=== PATIENT | female | born 1975 | race American Indian/Alaskan Native ===

== ENCOUNTER 2021-01-31 11:00 | Outpatient (CLI) | payer MEDICAID | END 2021-01-31 11:01 | disposition home or self-care (01) | LOC: SLR 11:00 | PROVIDERS: ATTEND Surgery | DX: G47.30 Sleep apnea, unspecified (principal) | CPT/HCPCS: G0399 ==

== ENCOUNTER 2021-03-08 13:41 | Outpatient (CLI) | payer MEDICAID ==
[2021-03-08 14:49] LABS: Eosinophils # (Auto) 0.1 K/mm3 (0.0-0.4); Eosinophils % (Auto) 0.8 % (0.0-4.3); Monocytes # (Auto) 0.5 K/mm3 (0.0-0.8); Monocytes % (Auto) 6.4 % (0.0-7.3)
[2021-03-08 15:00] LABS: Hematocrit 32.5 % (30.3-42.9); Hemoglobin 10.3 gm/dl (10.1-14.3); Red Blood Count 4.47 M/mm3 (3.65-5.03)
[2021-03-08 15:01] LABS: Basophils % (Auto) 0.3 % (0.0-1.8); Lymphocytes % (Auto) 25.5 % (13.4-35.0); Mean Corpuscular HGB Conc 32 % (30-34); Mean Corpuscular Volume 73 fl (79-97); Platelet Count 230 K/mm3 (140-440); Red Cell Distribution Width 16.8 % (13.2-15.2)
[2021-03-08 15:14] LABS: % Iron Saturation 7.28 %; Alanine Aminotransferase 16 units/L (7-56); BUN/Creatinine Ratio 20; Blood Urea Nitrogen 16 mg/dL (7-17); Calcium 9.1 mg/dL (8.4-10.2); Chol/HDL Ratio 2.91 %; HDL Cholesterol 59 mg/dL (40-59); Hemolysis Index 3; Iron 26 ug/dL (37-170); LDL Cholesterol,Direct 112 mg/dL (50-130); Total Iron Binding Capacity 357 mcg/dL (250-450)
== END 2021-03-08 13:42 | disposition home or self-care (01) ==
LOC: LAB 13:41
PROVIDERS: ATTEND Surgery
DX: E11.9 Type 2 diabetes mellitus without complications (principal); E66.01 Morbid (severe) obesity due to excess calories; K30 Functional dyspepsia
CPT/HCPCS: 36415; 80053; 80061; 82306; 82607; 82728; 83036; 83550; 84443; 85025; 85730

== ENCOUNTER 2021-06-21 12:25 | Outpatient (CLI) | payer MEDICAID ==
--- NOTE | 2021-06-21 14:09 | XRay Report ---
CHEST 2 VIEWS INDICATION: GERD. COMPARISON: None FINDINGS: Support devices: None. Heart: Within normal limits. Lungs/pleura: No acute air space or interstitial disease. No pneumothorax. Additional findings: None. IMPRESSION: Normal chest x-ray. Signer Name: Alexander Cruz Jr, MD Signed: 06/21/2021 2:05 PM Workstation Name: [id number]
[2021-06-21 16:11] LABS: ABG HCO3 21.8 mmol/L (20.0-26.0); ABG PCO2 32.4 mm Hg; ABG PH 7.445 pH Units (7.350-7.450); ABG PO2 95.4 mm Hg (80.0-90.0)
[2021-06-21 16:12] LABS: ABG Base Excess -1.7 mmol/L (-2.0-3.0); ABG Methemoglobin 0.3 % (0.0-1.5); ABG Oxygen Saturation 97.5 % (95.0-99.0)
== END 2021-06-21 12:26 | disposition home or self-care (01) ==
LOC: XRAY 12:25
PROVIDERS: ATTEND Internal Medicine
DX: K21.9 Gastro-esophageal reflux disease without esophagitis (principal); J32.9 Chronic sinusitis, unspecified; J30.9 Allergic rhinitis, unspecified; Z68.42 Body mass index [BMI] 45.0-49.9, adult; Z86.2 Personal history of diseases of the blood and blood-forming organs and certain disorders involving the immune mechanism
CPT/HCPCS: 36600; 71046; 82803

== ENCOUNTER 2021-07-11 07:14 | Day surgery (SDC) | payer MEDICAID ==
[~2021-07-11 07:14] MED LIST: SODIUM CHLORIDE 0.9% 1000 ML 1,000 ML IV SCH
--- NOTE | 2021-07-11 08:29 | Anesthesia Consultation ---
Anesthesia Consult and Med Hx Date of service: 07/11/21 - Airway Anesthetic Teeth Evaluation: Good ROM Head & Neck: Adequate Mental/Hyoid Distance: Adequate Mallampati Class: Class III Intubation Access Assessment: Possibly Difficult - Pre-Operative Health Status ASA Pre-Surgery Classification: ASA3 Proposed Anesthetic Plan: MAC - Pulmonary Hx Smoking: No Hx Respiratory Symptoms: No Hx Sleep Apnea: Yes (recent dx; no CPAP yet) - Cardiovascular System Hx Hypertension: No - Central Nervous System CVA: No - Endocrine Hx Renal Disease: No Hx Liver Disease: No Hx Insulin Dependent Diabetes: No Hx Non-Insulin Dependent Diabetes: No Hx Thyroid Disease: No - Other Systems Hx Obesity: Yes (BMI 45)
--- NOTE | 2021-07-11 08:29 | Anesthesia Day of Surgery ---
Anesthesia Day of Surgery - Day of Surgery Patient Examined: Yes Patient H&P Reviewed: Yes Patient is NPO: Yes
--- NOTE | 2021-07-11 08:49 | Operative Report ---
Operative Report Operative Report: DATE: 07/11/2021 SURGERY: Upper endoscopy. SURGEON: Sherman Fox M.D. PROCEDURE: EGD with biopsy PRE OP DX: morbid obesity, GERD POST OP DX: morbid obesity, GERD TYPE OF ANESTHESIA: MAC. ESTIMATED BLOOD LOSS: None. COMPLICATIONS: None. SPECIMENS REMOVED: antral biopsy FINDINGS: 1. hiatal hernia. 2. antral gastritis INDICATIONS:INDICATION FOR PROCEDURE: Patient is a 45-year-old female with a long history of morbid obesity. She is planned to have a weight loss procedure and is here for preoperative planning EGD. PROCEDURE DETAILS: After consent was reviewed, patient was taken back to the operating room where patient was placed in the left lateral decubitus position and a bite block was placed in the mouth. After a time-out was called, MAC anesthesia was initiated. I then passed the endoscope into her oropharynx, into her esophagus, visualized the entire esophagus, which was all within normal limits. Z-line was noted to about 36 cm from incisors. I then visualized the stomach and the first portion of the duodenum and there were no abnormalities I could clearly visualize except for antral gastritis. A cold forceps biopsy of the antrum was taken and will be sent to pathology to evaluate for H.pylori. I then retroflexed the scope in the stomach and visualized the hiatus and I could see a moderate sized hiatal hernia. I then desufflated the stomach and removed the endoscope. Patient tolerated procedure well and was transferred to recovery room in good and stable condition.
[2021-07-11] MEDS ORDERED: propofoL 200 MG/20 ML VIAL IV ONE ×2 (08:55→09:04)
--- NOTE | 2021-07-11 08:57 | Discharge Summary ---
Providers - Providers Date of Admission: 07/11/2021 Date of discharge: 07/11/21 Attending physician: HONEY CASTRO MD Primary care physician: YON TAN Hospitalization Reason for admission: pre-op planning egd Condition: Good Procedures: egd with bx Hospital course: Pt presented for a pre-op EGD as part of planning for up coming bariatric surgery. Procedure was uneventful and pt recovered well and was discharged to home. Disposition: 01 HOME / SELF CARE / HOMELESS Final Discharge Diagnosis (Prints w/discharge instructions): morbid obesity, dyspepsia Core Measure Documentation - Palliative Care Palliative Care/ Comfort Measures: Not Applicable - Core Measures Any of the following diagnoses?: none Exam - Physical Exam Narrative exam: unchanged from pre-op Plan Activity: advance as tolerated Diet: low carbohydrate Follow up with: YON TAN MD [Primary Care Provider] - 7 Days
[2021-07-11 09:33] VITALS: BP 108/81
--- NOTE | 2021-07-11 09:49 | Post Anesthesia Evaluation ---
- Post Anesthesia Evaluation Patient Participated: Yes Airway Patent: Yes Stable Respiratory Function: Yes Nausea/Vomiting: No Temp > 96.8F: Yes Pain Manageable: Yes Adequeate Hydration: Yes Anesthesia Complications: No
== END 2021-07-11 10:15 | disposition home or self-care (01) ==
LOC: GIO 07:14
PROVIDERS: ATTEND Surgery
DX: E66.01 Morbid (severe) obesity due to excess calories (principal); K21.9 Gastro-esophageal reflux disease without esophagitis; K44.9 Diaphragmatic hernia without obstruction or gangrene; K29.50 Unspecified chronic gastritis without bleeding; K31.89 Other diseases of stomach and duodenum; E66.9 Obesity, unspecified; G47.30 Sleep apnea, unspecified; Z91.040 Latex allergy status; Z88.8 Allergy status to other drugs, medicaments and biological substances; Z79.899 Other long term (current) drug therapy; Z98.890 Other specified postprocedural states; Z68.42 Body mass index [BMI] 45.0-49.9, adult
CPT/HCPCS: 43239; 88305; 88342; J2704; J7030

== ENCOUNTER 2021-07-14 09:37 | Outpatient (CLI) | payer MEDICAID ==
--- NOTE | 2021-07-14 12:14 | XRay Report ---
CHEST 2 VIEWS INDICATION: E66.00. COMPARISON: 06/21/2021 FINDINGS: Support devices: None. Heart: Within normal limits. Lungs/pleura: No acute air space or interstitial disease. No pneumothorax. Additional findings: None. IMPRESSION: Normal chest x-ray. No change since 06/21/2021. Signer Name: Alexander Cruz Jr, MD Signed: 07/14/2021 12:10 PM Workstation Name: [id number]
--- NOTE | 2021-07-14 12:16 | Fluoroscopy Report ---
BARIUM SWALLOW Indication: E66.00. Evaluation for gastric bypass surgery. Technique: Single and double contrast barium technique utilized to evaluate the esophagus. FINDINGS: To begin the exam, swallowing was evaluated in the lateral position under direct fluorosco py. Swallowing was normal. No mucosal irregularity, mass, mass effect, or critical stenosis. There were no abnormal tertiary c ontractions as seen with dysmotility. One episode of gastroesophageal reflux to the mid esophagus was witnessed during this exam. No hiatal hernia is seen. IMPRESSION: No anatomical abnormality is appreciated. One episode of gastroesophageal reflux was wit nessed. Fluoroscopic time: 0.9 minutes Number of fluoroscopic images: 44 Signer Name: Alexander Cruz Jr, MD Signed: 07/14/2021 12:12 PM Workstation Name: [id number]
== END 2021-07-14 09:38 | disposition home or self-care (01) ==
LOC: FLUORO 09:37
PROVIDERS: ATTEND Surgery
DX: E66.01 Morbid (severe) obesity due to excess calories (principal)
CPT/HCPCS: 71046; 74220

== ENCOUNTER 2021-08-01 10:57 | Outpatient (CLI) | payer MEDICAID ==
[2021-08-01 11:20] LABS: Basophils % (Auto) 0.3 % (0.0-1.8); Eosinophils # (Auto) 0.1 K/mm3 (0.0-0.4); Eosinophils % (Auto) 0.9 % (0.0-4.3); Hematocrit 30.9 % (30.3-42.9); Hemoglobin 10.2 gm/dl (10.1-14.3); Lymphocytes # (Auto) 1.7 K/mm3 (1.2-5.4); Lymphocytes % (Auto) 27.7 % (13.4-35.0); Mean Corpuscular HGB Conc 33 % (30-34); Mean Corpuscular Volume 73 fl (79-97); Monocytes # (Auto) 0.4 K/mm3 (0.0-0.8); Monocytes % (Auto) 6.5 % (0.0-7.3); Platelet Count 211 K/mm3 (140-440); Red Blood Count 4.23 M/mm3 (3.65-5.03)
[2021-08-01 11:38] LABS: Alanine Aminotransferase 6 units/L (7-56); Albumin 3.9 g/dL (3.9-5); Blood Urea Nitrogen 7 mg/dL (7-17); Calcium 9.2 mg/dL (8.4-10.2); Hemolysis Index 0; Iron 25 ug/dL (37-170)
[2021-08-01 11:49] LABS: BUN/Creatinine Ratio 12
[2021-08-04 13:13] LABS: Vitamin D, 25-OH, D2 <4 ng/mL
== END 2021-08-01 10:58 | disposition home or self-care (01) ==
LOC: LAB 10:57
PROVIDERS: ATTEND Internal Medicine
DX: Z01.810 Encounter for preprocedural cardiovascular examination (principal); E55.9 Vitamin D deficiency, unspecified
CPT/HCPCS: 36415; 80053; 82306; 82728; 83540; 85025

== ENCOUNTER 2021-09-04 05:52 | Inpatient (IN) | payer MEDICAID ==
[2021-09-01 11:40] LABS: Alanine Aminotransferase 5 units/L (7-56); Blood Urea Nitrogen 11 mg/dL (7-17); Calcium 9.4 mg/dL (8.4-10.2); Hemolysis Index 2
[2021-09-01 11:41] LABS: BUN/Creatinine Ratio 16
--- NOTE | 2021-09-01 12:16 | Anesthesia Consultation ---
Anesthesia Consult and Med Hx Date of service: 09/04/21 - Airway Anesthetic Teeth Evaluation: Chipped ROM Head & Neck: Adequate Mental/Hyoid Distance: Adequate Mallampati Class: Class III Intubation Access Assessment: Possibly Difficult - Pre-Operative Health Status ASA Pre-Surgery Classification: ASA3 Proposed Anesthetic Plan: General - Pulmonary Hx Smoking: No Hx Respiratory Symptoms: No Hx Sleep Apnea: Yes - Cardiovascular System Hx Hypertension: No - Central Nervous System CVA: No Hx Psychiatric Problems: No - Gastrointestinal Hx Gastroesophageal Reflux Disease: Yes - Endocrine Hx Renal Disease: No Hx Liver Disease: No Hx Insulin Dependent Diabetes: No Hx Non-Insulin Dependent Diabetes: No Hx Thyroid Disease: No - Other Systems Hx Cancer: No Hx Obesity: Yes (BMI 45) - Additional Comments Anesthesia Medical History Comments: Chart reviewed-+Cardiac and pulmonary clearances
[2021-09-01 12:37] LABS: Hemoglobin 10.9 gm/dl (10.1-14.3); Red Blood Count 4.62 M/mm3 (3.65-5.03)
[2021-09-01 12:38] LABS: Hematocrit 34.8 % (30.3-42.9); Mean Corpuscular HGB Conc 31 % (30-34); Mean Corpuscular Volume 75 fl (79-97); Platelet Count 220 K/mm3 (140-440); Red Cell Distribution Width 16.7 % (13.2-15.2)
[2021-09-04] MEDS ORDERED: methOCARBAMOL 1,000 MG in SODIUM CHLORIDE 0.9% 250ML 250 ML IV ONE (06:00)
[2021-09-04] MEDS ORDERED: ENOXAPARIN 40 MG/0.4 ML INJ SUB-Q NR (06:00)
[2021-09-04] MEDS ORDERED: ACETAMINOPHEN IV 1,000 MG/100 ML BOTTLE IV NR (06:00)
[2021-09-04] MEDS ORDERED: metroNIDAZOLE/NS 500 MG/100 ML 500 MG/100 ML BAG IV NR (06:00)
[2021-09-04] MEDS ORDERED: MIDAZOLAM 2 MG/2 ML INJ IV NR (06:00)
[2021-09-04] MEDS ORDERED: LACTATED RINGERS 1,000 ML IV SCH ×2 (06:00→11:30)
[2021-09-04] MEDS ORDERED: GABAPENTIN 500 MG/10 ML ORAL LIQD PO NR (06:00)
[2021-09-04] MEDS ORDERED: SCOPOLAMINE TRANSDERMAL PATCH 72 HR TD NR (06:00)
[2021-09-04] MEDS ORDERED: ceFAZolin/Water 2 GM/20 ML 2 GM/20 ML SYRINGE IV NR (06:00)
[2021-09-04] MEDS ORDERED: LIDOCAINE MPF (2%) 20 MG/1 ML VIAL 5 ML ONE (07:16)
[2021-09-04] MEDS ORDERED: MIDAZOLAM 2 MG/2 ML INJ ONE (07:16)
[2021-09-04] MEDS ORDERED: ROCURONIUM 50 MG/5 ML INJ IV ONE (07:16)
[2021-09-04] MEDS ORDERED: SODIUM CHLORIDE P/F VIAL 10 ML 10 ML ONE (07:26)
--- NOTE | 2021-09-04 07:30 | Anesthesia Day of Surgery ---
Anesthesia Day of Surgery - Day of Surgery Patient Examined: Yes Patient H&P Reviewed: Yes Patient is NPO: Yes Cardiac Clearance: Yes Pulmonary Clearance: Yes
[2021-09-04] MEDS ORDERED: SUGAMMADEX SODIUM 200 MG/2 ML VIAL IV ONE (07:32)
[2021-09-04] MEDS ORDERED: MAGNESIUM SULFATE 4 GM/100 ML BAG IV ONE (07:33)
[2021-09-04] MEDS ORDERED: LIDOCAINE 1%/EPINEPHRINE 1:100,000 VIAL (20 ML) INFILTRATI ONE ×2 (07:35→08:41)
[2021-09-04] MEDS ORDERED: KETAMINE/STERILE WATER 50 MG/ML SYRINGE ONE (07:35)
[2021-09-04] MEDS ORDERED: BUPIVACAINE/PF (0.25%) 2.5 MG/ML 30 ML VIAL INFILTRATI ONE ×2 (07:35→08:42)
[2021-09-04] MEDS ORDERED: ONDANSETRON 4 MG/2 ML INJ IV PRN ×2 (08:00→12:00)
[2021-09-04] MEDS ORDERED: fentaNYL 100 MCG/2 ML INJ IV PRN (08:00)
--- OUTSIDE RECORDS SUMMARY | 2021-09-04 08:34 | External Medical Summary ---
:1975 Author Organization [facility], [facility] Address [address] [address] Care Team Providers Name Role Phone Sherman Fox Unavailable [phone] PROBLEMS Type Condition ICD9-CM [id number] Onset Condition W/U Status Risk SNOM ED Notes Code Code Dates Status Code Problem Gastro-esopha K21.9 Active confirmed 085116 005 geal reflux disease without esophagitis Problem Vitamin D E55.9 Active confirmed 52823102 deficiency, unspecified Problem Sleep apnea, G47.30 Active confirmed 8484859 6 unspecified Problem Sleep G47.9 Active confirmed 77858991 disorder, unspecified Problem Morbid E66.01 Active confirmed 604423530 (severe) obesity due to excess calories Problem Body mass Z68.42 Active confirmed 267662080 index [BMI] 45.0-49.9, adult Problem Dietary Z71.3 Active confirmed 664710839 counseling and surveillance ALLERGIES Allergen (clinical drug Drug/Non Drug Allergy Reaction Allergy Type Onset Date Status ingredient) documented on EMR Latex Latex Unknown Drug Allergy Active ibuprofen Ibuprofen([facility] Unknown Drug Allergy Active Code:[address]-54) ENCOUNTERS from 1975 to 2021-09-01 Encounter Location Date Provider Diagnosis [facility] [address] 15 Aug, [address] reflux d isease without of [facility] [place], [place] esophag itis K21.9 ; [id number] Morbid (severe) obesity due to excess calories E66.01 ; Bariatric surge ry status Z98.84 a nd Sleep apnea, unspecified G47 .30 IMMUNIZATIONS No Information SOCIAL HISTORY Tobacco Use: Social History Observation Description Date Details (start date - stop date) Never Smoker Sex Assigned At : Social History Observation Description Sex Assigned At Unknown Smoking Question Answer Notes Are you a: never smoker REASON FOR REFERRAL from 1974 to 2021-09-01 Reason Gastric Bypass Diagnosis 1 Morbid (severe) obesity due to excess calories (E66.01) Diagnosis 2 Gastro-esophageal reflux dis ease without esophagitis (K21.9) Diagnosis 3 Sleep disorder, unspecified (G47.9) Diagnosis 4 Dietary counseling and surve illance (Z71.3) Diagnosis 5 Body mass index [BMI] 45.0-4 9.9, adult (Z68.42) Diagnosis 6 Vitamin D deficiency, unspec ified (E55.9) Diagnosis 7 Sleep apnea, unspecified (G4 7.30) Diagnosis 8 Encounter for screening for diabetes mellitus (Z13.1) Referral Organization [facility] Referring Provider First Name Sherman Referring Provider Last Name Ruddy Referring Provider Specialty Surgery Referred Provider [facility], - Referral Priority Routine VITAL SIGNS Height 62 in Aug, Weight 255.8 lbs Aug, Temperature 97.9 degrees Fahrenheit Aug, BMI 46.78 kg/m2 Aug, Blood pressure systolic 157 mm Hg Aug, Blood pressure diastolic 104 mm Hg Aug, MEDICATIONS Medication SIG (Take, Route, Notes Start Date End Date Status Frequency, Duration) HYDROcodone-Acetaminophe 15 ml as needed Orally Aug, 21 Aug, Active n 7.5-325 MG/15ML every 6 hrs for 7 days Ondansetron 4 MG 1 tablet on the tongue Aug, Active and allow to dissolve orally q 4-6 hours prn nausea for 30 day(s) Omeprazole 40 MG 1 capsule 30 minutes Aug, Active before morning meal Orally Once a day for 30 day(s) Omeprazole 40 MG 1 capsule Orally Once Dec, Active a day for 30 day(s) PROCEDURES No Information RESULTS No Results REASON FOR VISIT PreOp bypass MEDICAL (GENERAL) HISTORY Type Description Date Medical History GERD Medical History sleep apnea Surgical History x4 1993, 1999, 2003, 20 06 Surgical History lap gastric sleeve 02/2014 Hospitalization History as above Goals Section No Information Health Concerns No Information MEDICAL EQUIPMENT No Information MENTAL STATUS No Information FUNCTIONAL STATUS No Information ASSESSMENTS Encounter Date Diagnosis Assessment Notes Treatment Notes Treatm ent Clinical Notes Aug, Gastro-esophageal should improve after reflux disease conversion to without gastric bypass esophagitis (ICD-10 - K21.9) Aug, Morbid (severe) An hour was spent obesity due to with patient excess calories reinforcing diet, (ICD-10 - E66.01) vitamin requirements and lifestyle education, A quiz was administered and reviewed to verify understanding of intended procedure and post operative care. Consent forms were reviewed with patient and signed answering all questions, Pre-operative labs were ordered. Aug, Bariatric surgery status (ICD-10 - Z98.84) Aug, Sleep apnea, Continue use of CPAP unspecified machine, should (ICD-10 - G47.30) resolve or greatly improve after weight loss surgery, and will titrate CPAP machine as tolerated. PLAN OF TREATMENT Medication Medication Name Sig Start Date Stop Date HYDROcodone-Acetaminophen 15 ml as needed Orally every 15 Aug, 021 Aug, 7.5-325 MG/15ML 6 hrs for 7 days Omeprazole 40 MG 1 capsule 30 minutes before Aug, morning meal Orally Once a day for 30 day(s) Ondansetron 4 MG 1 tablet on the tongue and Aug, allow to dissolve orally q 4-6 hours prn nausea for 30 day(s) Treatment Notes Assessment Notes Clinical Notes Gastro-esophageal reflux disease should improve after conver courtney to without esophagitis gastric bypass Morbid (severe) obesity due to An hour was spent with patien t excess calories reinforcing diet, vitamin requirements and lifestyle education, A quiz was administered and reviewed to verify understanding of intended procedure and post operative care. Consent forms were reviewed with patient and signed answering all questions, Pre-operative labs were ordered. Sleep apnea, unspecified Continue use of CPAP machine, shoul d resolve or greatly improve after weight loss surgery, and will titrate CPAP machine as tolerated. Referrals Referral Date Details Gastric Bypass Next Appt Details for surgery Reason: Provider Name:Sherman Fox, 2020--2 5 08:00:00 AM, [address] [place], [place], [phone], Insurance Providers Payer Name Payer Address Payer Insured Patient Coverage Cover age End Phone Name Relationship to Start Date Joel e Insured [facility] [phone] Sherley Busby /[facility] [id number]
[2021-09-04] MEDS ORDERED: SODIUM CHLORIDE 0.9% IRR 1,500 ML BOTTLE IR ONE (08:41)
[2021-09-04] MEDS ORDERED: SODIUM CHLORIDE 0.9% IRRIG SOLN 2000 ML IR ONE (08:41)
[2021-09-04] MEDS ORDERED: ONDANSETRON 4 MG/2 ML INJ ONE (11:03)
[2021-09-04] MEDS ORDERED: dexAMETHasone 20 MG/5 ML VIAL ONE (11:03)
[2021-09-04] MEDS ORDERED: NEOSTIGMINE 10MG/10 ML INJ MDV ONE (11:03)
[2021-09-04] MEDS ORDERED: GLYCOPYRROLATE 0.4 MG/2 ML INJ ONE ×2 (11:03)
[2021-09-04] MEDS ORDERED: hydrALAZINE 20 MG/1 ML INJ IV PRN (12:00)
[2021-09-04] MEDS ORDERED: HYDROmorphone 1 MG/1 ML INJ IV PRN (12:00)
[2021-09-04] MEDS ORDERED: HYDROcodone/Acetaminophen 7.5-325MG-15ML ORAL LIQD PO PRN (12:00)
[2021-09-04] MEDS ORDERED: METOCLOPRAMIDE 10 MG/2 ML INJ IV PRN (12:00)
[2021-09-04] MEDS: MORPHINE 2 MG/1 ML INJ IV PRN ×2 (12:44→20:18)
--- NOTE | 2021-09-04 12:47 | Operative Report ---
Operative Report Operative Report: DATE OF PROCEDURE: 09/04/2021 SURGEON: Sherman Fox M.D. PARTS REMOVER: Trell De Los Santos CSA MD PREOPERATIVE DIAGNOSIS: Morbid obesity. POSTOPERATIVE DIAGNOSES: Morbid obesity PROCEDURES PERFORMED: 1. Laparoscopic gastric bypass. 2. EGD. ANESTHESIA: General endotracheal tube intubation. SPECIMENS: None. ESTIMATED BLOOD LOSS: Less than 20 mL. FINDINGS: Normal anatomy. COMPLICATIONS: None. INDICATION: Ms. Busby is a 45-year-old female with history of sleeve gastrectomy for weight loss. She did well but began to have GERD that was not controlled with months of PPI usage. She is here today to convert her gastric sleeve to gastric bypass which is an anti-reflux procedure. She signed informed consent and expressed understanding of risks and benefits. DESCRIPTION OF PROCEDURE: Patient was brought to the OR suite, laid in supine position. Bilateral lower extremity SCDs were placed. General anesthesia was induced via successful endotracheal tube intubation. Patient's abdomen was prepped and draped in sterile fashion. A veress needle was used to insuflate the abdomen to a pressure of 18 mmHg in the left subcostal region. Using Optiview technique, a 5- mm trocar was placed into the abdominal cavity under direct vision just superior and to the left of the umbilicus. There was noted to be no gross injury to any intraabdominal structures. 12 mm in the right mid abdomen mid clavicular line and three 5-mm trocars in the right upper quadrant, epigastric areas were placed under direct visualization. At this time, the ligament of Treitz identified and followed down approximately 70 cm and the jejunum was transected. The distal segment of jejunum was then traced for approximately 100 cm and a stable [id number] jejunojejunostomy was performed. The common enterotomy was closed with 2 firings of the endoscopic stapler. The mesenteric defect was closed with running non-absorbable v-loc suture. This anastomosis was found to be patent without kink, obstruction or bleeding. At this time, the patient was placed in steep reverse Trendelenburg position. A liver retractor was placed through the epigastric port to elevate the left lateral lobe of the liver. A small gastric pouch was formed with firing of the gold load on a laparoscopic stapler. The Robert limb was then brought in an antegastric antecolic fashion and secured with 2 stay sutures to the gastric pouch. After this, the enterotomies were made with Harmonic scalpel, and a exjt-sl-benc stapled gastrojejunostomy was performed with a mechanical stapler. After this, a 2-layer running closure using absorbable V-lock suture were done, the first being mucosal approximation prior to completion of the first layer. Then I passed and an EGD scope beyond the anastomosis to act as a stent. The first layer was completed, the second was then performed. After this, the EGD was retracted slightly. A bowel clamp was placed in a proximal Robert limb. The anastomosis was submerged under saline. Via intraluminal EGD insufflation, there was noted be no bubbles in the saline indicating an airtight anastomosis. There was noted to be no obstruction or bleeding intraluminally in the pouch or the anastomosis. At this time, the scope was removed. The saline was aspirated. Vistaseal was placed over the anastomosis. All trocars were removed under direct visualization and the abdomen was then desufflated. A TAP block was performed using a total of 60 mL 0.25% Marcaine along bilateral mid axillary lines starting at the subcostal margin at the level of the umbilicus. The 12mm trocar site was closed using POD and a Bryan Dave device for fear that after surgery it become incarcerated. The skin incisions were closed with 4-0 Monocryl followed by Dermabond dressings. Patient was awoken and taken to recovery in stable condition. All counts were correct.
[2021-09-04] MEDS: PANTOPRAZOLE 40 MG INJ IV SCH (13:20)
[2021-09-04] MEDS: ACETAMINOPHEN IV 1,000 MG/100 ML BOTTLE IV SCH ×2 (14:47→20:19)
[2021-09-04] MEDS: ceFAZolin/NS 1 GM/50 ML 1 GM/50 ML BAG IV SCH ×2 (15:51→23:35)
[2021-09-04] MEDS: metroNIDAZOLE/NS 500 MG/100 ML 500 MG/100 ML BAG IV SCH (16:27)
[2021-09-04] MEDS: SIMETHICONE 80 MG CHEW TAB PO PRN (20:19)
[2021-09-05] MEDS: metroNIDAZOLE/NS 500 MG/100 ML 500 MG/100 ML BAG IV SCH ×2 (00:26→11:02)
[2021-09-05] MEDS: ACETAMINOPHEN IV 1,000 MG/100 ML BOTTLE IV SCH ×2 (02:14→09:00)
[2021-09-05] MEDS: MORPHINE 2 MG/1 ML INJ IV PRN ×3 (02:15→10:56)
[2021-09-05] MEDS: SIMETHICONE 80 MG CHEW TAB PO PRN (02:15)
[2021-09-05 05:56] LABS: Hematocrit 31.5 % (30.3-42.9); Lymphocytes # (Auto) 1.1 K/mm3 (1.2-5.4); Lymphocytes % (Auto) 10.9 % (13.4-35.0); Mean Corpuscular HGB Conc 32 % (30-34); Mean Corpuscular Volume 74 fl (79-97); Monocytes # (Auto) 0.6 K/mm3 (0.0-0.8); Monocytes % (Auto) 5.9 % (0.0-7.3); Platelet Count 201 K/mm3 (140-440); Red Blood Count 4.25 M/mm3 (3.65-5.03); Red Cell Distribution Width 16.7 % (13.2-15.2)
[2021-09-05 06:22] LABS: Alanine Aminotransferase 9 units/L (7-56); Albumin 3.5 g/dL (3.9-5); Blood Urea Nitrogen 8 mg/dL (7-17); Calcium 8.9 mg/dL (8.4-10.2); Hemolysis Index 15
[2021-09-05 06:24] LABS: BUN/Creatinine Ratio 11
--- NOTE | 2021-09-05 09:29 | Post Anesthesia Evaluation ---
- Post Anesthesia Evaluation Patient Participated: Yes Airway Patent: Yes Stable Respiratory Function: Yes Nausea/Vomiting: No Temp > 96.8F: Yes Pain Manageable: Yes Adequeate Hydration: Yes Anesthesia Complications: No Block Receding Appropriately: Not Applicable Patient on Ventilator: No
[2021-09-05] MEDS ORDERED: ENOXAPARIN 40 MG/0.4 ML INJ SUB-Q SCH (10:00)
[2021-09-05] MEDS: PANTOPRAZOLE 40 MG INJ IV SCH (11:02)
[2021-09-05 12:15] VITALS: BP 139/83
--- NOTE | 2021-09-05 15:40 | Discharge Summary ---
Providers - Providers Date of Admission: 09/04/21 05:59 Date of discharge: 09/05/21 Attending physician: HONEY CASTRO MD 09/04/21 11:24 Physical Therapy Evaluation and Treat [CONS] Routine Comment: Reason For Exam: s/p bariatric surgery Primary care physician: YON TAN Hospitalization Reason for admission: s/p lap gastric bypass Condition: Good Procedures: laparoscopic gastric bypass Hospital course: pt had an uneventful course s/p laparoscopic gastric bypass conversion from gastric sleeve for uncontrolled GERD. She remained afebrile and stable tolerating clear liquids on POD#1. She was ambulating with adequate pain control. She was discharged to home on POD#1 showing no gross clinical signs of leak or bleeding. Disposition: 01 HOME / SELF CARE / HOMELESS Final Discharge Diagnosis (Prints w/discharge instructions): gerd, morbid obesity Core Measure Documentation - Palliative Care Palliative Care/ Comfort Measures: Not Applicable - Core Measures Any of the following diagnoses?: none Exam - Constitutional Vitals: Temp Pulse Resp BP Pulse Ox 98.4 F 74 18 139/83 97 09/05/21 12:04 09/05/21 12:04 09/05/21 12:04 09/05/21 12:04 09/05/21 12:04 General appearance: Present: no acute distress, obese - EENT Eyes: Present: PERRL ENT: hearing intact - Respiratory Respiratory effort: normal - Cardiovascular Heart Sounds: Present: S1 & S2 - Extremities Extremities: no ischemia - Abdominal General gastrointestinal: Present: soft, non-tender, other (incisions c/d/i) - Musculoskeletal Musculoskeletal: strength equal bilaterally - Psychiatric Psychiatric: appropriate mood/affect Plan Activity: advance as tolerated Diet: clear liquids Wound: open to air, keep clean and dry Follow up with: YON TAN MD [Primary Care Provider] - 7 Days HONEY CASTRO MD [Staff Physician] - 7 Days
== END 2021-09-05 17:03 | disposition home or self-care (01) | DRG 621 ==
LOC: 3A 05:59 → 4A 09:35
PROVIDERS: ADMIT Surgery; ATTEND Surgery
PROC: 0D164ZA Bypass Stomach to Jejunum, Percutaneous Endoscopic Approach (ICD-10-PCS; principal; 2021-09-04)
PROC: 0DJ08ZZ Inspection of Upper Intestinal Tract, Via Natural or Artificial Opening Endoscopic (ICD-10-PCS; 2021-09-04)
DX: E66.01 Morbid (severe) obesity due to excess calories (principal); K21.9 Gastro-esophageal reflux disease without esophagitis; Z68.42 Body mass index [BMI] 45.0-49.9, adult; Z20.822 Contact with and (suspected) exposure to COVID-19
CPT/HCPCS: 36415; 80053; 84703; 85025; 85027; 94660; G0378; C9113; J0131; J0690; J1100; J1650; J2250; J2270; J2405; J2704; J2710; J3475; J3490; J7120; U0003

== ENCOUNTER 2021-10-02 09:19 | Outpatient (CLI) | payer MEDICAID ==
[2021-10-02 10:08] LABS: Basophils % (Auto) 0.2 % (0.0-1.8); Eosinophils # (Auto) 0.1 K/mm3 (0.0-0.4); Eosinophils % (Auto) 1.7 % (0.0-4.3); Hematocrit 36.1 % (30.3-42.9); Hemoglobin 11.1 gm/dl (10.1-14.3); Lymphocytes # (Auto) 1.2 K/mm3 (1.2-5.4); Lymphocytes % (Auto) 24.9 % (13.4-35.0); Mean Corpuscular HGB Conc 31 % (30-34); Mean Corpuscular Volume 76 fl (79-97); Monocytes # (Auto) 0.4 K/mm3 (0.0-0.8); Monocytes % (Auto) 7.1 % (0.0-7.3); Platelet Count 205 K/mm3 (140-440); Red Blood Count 4.75 M/mm3 (3.65-5.03); Red Cell Distribution Width 17.1 % (13.2-15.2)
[2021-10-02 10:22] LABS: Alanine Aminotransferase 12 units/L (7-56); Albumin 4.3 g/dL (3.9-5); Blood Urea Nitrogen 11 mg/dL (7-17); Calcium 9.5 mg/dL (8.4-10.2); Chol/HDL Ratio 2.54 %; HDL Cholesterol 57 mg/dL (40-59); Hemolysis Index 1; Iron 33 ug/dL (37-170); LDL Cholesterol,Direct 74 mg/dL (50-130)
[2021-10-02 10:23] LABS: BUN/Creatinine Ratio 18; Total Iron Binding Capacity 301 mcg/dL (250-450)
== END 2021-10-02 09:20 | disposition home or self-care (01) ==
LOC: LAB 09:19
PROVIDERS: ATTEND Surgery
DX: E55.9 Vitamin D deficiency, unspecified (principal); K90.9 Intestinal malabsorption, unspecified; E66.01 Morbid (severe) obesity due to excess calories; K30 Functional dyspepsia; Z98.84 Bariatric surgery status
CPT/HCPCS: 36415; 80053; 80061; 82607; 82728; 83550; 84425; 84443; 85025

== ENCOUNTER 2022-04-25 10:53 | Outpatient (CLI) | payer MEDICAID ==
[2022-04-25 11:27] LABS: Basophils % (Auto) 0.3 % (0.0-1.8); Eosinophils % (Auto) 0.7 % (0.0-4.3); Hematocrit 31.8 % (30.3-42.9); Hemoglobin 9.8 gm/dl (10.1-14.3); Lymphocytes # (Auto) 1.5 K/mm3 (1.2-5.4); Lymphocytes % (Auto) 24.4 % (13.4-35.0); Mean Corpuscular HGB Conc 31 % (30-34); Mean Corpuscular Volume 75 fl (79-97); Monocytes # (Auto) 0.3 K/mm3 (0.0-0.8); Monocytes % (Auto) 5.6 % (0.0-7.3); Platelet Count 223 K/mm3 (140-440); Red Blood Count 4.22 M/mm3 (3.65-5.03); Red Cell Distribution Width 15.5 % (13.2-15.2)
[2022-04-25 11:50] LABS: % Iron Saturation 7.79 %; Alanine Aminotransferase 13 units/L (7-56); Albumin 4.2 g/dL (3.9-5); Blood Urea Nitrogen 7 mg/dL (7-17); Calcium 9.4 mg/dL (8.4-10.2); Chol/HDL Ratio 2.28 %; HDL Cholesterol 69 mg/dL (40-59); Hemolysis Index 0; Iron 24 ug/dL (37-170); LDL Cholesterol,Direct 87 mg/dL (50-130); Total Iron Binding Capacity 308 mcg/dL (250-450)
[2022-04-25 11:55] LABS: BUN/Creatinine Ratio 10
== END 2022-04-25 10:54 | disposition home or self-care (01) ==
LOC: LAB 10:53
PROVIDERS: ATTEND Surgery
DX: Z13.29 Encounter for screening for other suspected endocrine disorder (principal); Z13.21 Encounter for screening for nutritional disorder; E66.01 Morbid (severe) obesity due to excess calories; K30 Functional dyspepsia; E11.9 Type 2 diabetes mellitus without complications; E55.9 Vitamin D deficiency, unspecified; K90.9 Intestinal malabsorption, unspecified; Z98.84 Bariatric surgery status
CPT/HCPCS: 36415; 80053; 80061; 82607; 82728; 83036; 83550; 83970; 84425; 84443; 85025